=== PATIENT | female | born 1990 | race Caucasian/White ===

== ENCOUNTER 2022-06-25 04:31 | Emergency (ER) | payer MEDICAID ==
[~2022-06-25] VITALS: Ht 162.6 cm; Wt 76.2 kg
[2022-06-25 06:31] LABS: BASOPHILS % 0.8 % (0.0-2.0); EOSINOPHILS % 0.5 % (0.0-5.0); HEMATOCRIT. 39.9 % (36.0-48.0); HEMOGLOBIN. 12.8 g/dL (12.0-16.0); LYMPHOCYTES % 28.9 % (20.0-50.0); MEAN CORPUSCULAR HEMOGLOBIN 27.7 pg (28.0-32.0); MEAN CORPUSCULAR VOLUME 86.3 fL (81.0-99.0); MEAN PLATELET VOLUME 8.3 fl (7.4-10.4); MONOCYTES % 9.2 % (2.0-8.0); NEUTROPHILS % 60.6 % (40.0-76.0); PLATELET 274 x1000/uL (130-400); RED BLOOD CELL COUNT 4.63 mill/uL (4.2-5.4); RED CELL DISTRIBUTION WIDTH 15.4 % (11.6-14.6)
[2022-06-25 06:39] LABS: CHLORIDE 109 mEq/L (98-107)
[2022-06-25 06:45] LABS: HCG SCREEN NEGATIVE
[2022-06-25 08:10] VITALS: BP 103/70
== END 2022-06-25 08:35 | disposition home or self-care (01) ==
LOC: EDSEX 04:31 → ER 04:31
DX: R07.89 Other chest pain (principal); M25.512 Pain in left shoulder; I10 Essential (primary) hypertension; Z98.890 Other specified postprocedural states
CPT/HCPCS: 36415; 80053; 84443; 84703; 85025; 93005; 99283